=== PATIENT | female | born 1990 | race Caucasian/White ===

== ENCOUNTER 2016-06-28 11:16 | Inpatient (IN) | payer OTHER ==
[~2016-06-28] VITALS: Ht 167.6 cm; Wt 51.3 kg
[2016-06-28 12:00] VITALS: BP 114/63
[2016-06-28 12:48] LABS: BASO # 0.1 10*3/uL (0.0-0.1); BASO % 0.7 % (0.0-1.0); EOS % 0.5 % (1.0-4.0); HEMATOCRIT 46.4 % (37.0-47.0); HEMOGLOBIN 14.7 g/dl (12.0-16.0); LYMPH # 1.2 10*3/uL (1.3-4.4); LYMPH % 15.7 % (27.0-41.0); MEAN CELL VOLUME 89.4 fl (81.0-99.0); MEAN CORPUSCULAR HGB 28.3 pg (27.0-31.0); MEAN CORPUSCULAR HGB CONC 31.7 g/dl (33.0-37.0); MEAN PLATELET VOLUME 11.8 fl (9.6-12.3); MONO # 0.2 10*3/uL (0.1-1.0); MONO % 3.3 % (3.0-9.0); NEUT # 5.9 10*3/uL (2.3-7.9); NEUT % 79.5 % (47.0-73.0); PLATELET COUNT AUTOMATED 211 10*3/uL (130-400); RED BLOOD COUNT 5.19 10*6/uL (4.10-5.10); RED CELL DISTRI WIDTH 13.5 % (0-14.5); WHITE BLOOD COUNT 7.4 10*3/uL (4.8-10.8)
[2016-06-28 12:55] LABS: BILIRUBIN NEGATIVE (NEGATIVE); BLOOD NEGATIVE (NEGATIVE); CLARITY SL CLOUDY (CLEAR); COLOR YELLOW (YELLOW); GLUCOSE NEGATIVE (NEGATIVE); KETONE NEGATIVE (NEGATIVE); LEUKO ESTERASE NEGATIVE (NEGATIVE); NITRITE NEGATIVE (NEGATIVE); PH 8.5 (5.0-9.0); PROTEIN NEGATIVE (NEGATIVE); UROBILINOGEN 0.2 E.U./dl (0.2-1.0)
[2016-06-28 12:59] LABS: PROTHROMBIN TIME 10.2 SECONDS (9.0-12.4)
[2016-06-28 13:03] LABS: ALKALINE PHOSPHATASE 66 U/L (45-117); BILIRUBIN, TOTAL 0.5 mg/dl (0.2-1.0); BUN 4 mg/dl (7-24); CARBON DIOXIDE 27 mmol/L (21-32); CHLORIDE 106 mmol/L (98-107); EST GLOM FILT AFRICAN AMERICAN > 60 ml/min; GLUCOSE 104 mg/dL (65-99); POTASSIUM 4.4 mmol/L (3.5-5.1); SGOT/AST 10 IU/L (3-35); SGPT/ALT 15 U/L (12-78); SODIUM 141 mmol/L (136-145); TOTAL PROTEIN 7.7 gm/dL (6.4-8.2)
[2016-06-28 13:12] LABS: BACTERIA TRACE; EPITHELIAL CELLS 15-20; URINE REFLEX COMMENT NO (NO)
[2016-06-28 16:00] VITALS: BP 100/50
[2016-06-28 17:56] LABS: URINE AMPHETAMINES < 1000 (1000ng/ml); URINE BARBITURATES < 200 (200ng/ml); URINE COCAINE < 300 (300ng/ml)
[2016-06-28 20:00] VITALS: BP 106/53
[2016-06-29] VITALS: BP 110/58
[2016-06-29 08:00] VITALS: BP 100/47
[2016-06-29 12:00] VITALS: BP 79/41
[2016-06-29 16:00] VITALS: BP 101/51; BP 99/53
[2016-06-29 20:00] VITALS: BP 106/62
[2016-06-30] VITALS: BP 87/50
[2016-06-30 08:03] LABS: BASO # 0.1 10*3/uL (0.0-0.1); BASO % 0.8 % (0.0-1.0); EOS # 0.2 10*3/uL (0.0-0.4); EOS % 3.7 % (1.0-4.0); HEMATOCRIT 40.6 % (37.0-47.0); HEMOGLOBIN 13.3 g/dl (12.0-16.0); LYMPH # 3.1 10*3/uL (1.3-4.4); LYMPH % 48.2 % (27.0-41.0); MEAN CELL VOLUME 87.1 fl (81.0-99.0); MEAN CORPUSCULAR HGB 28.5 pg (27.0-31.0); MEAN CORPUSCULAR HGB CONC 32.8 g/dl (33.0-37.0); MEAN PLATELET VOLUME 11.6 fl (9.6-12.3); MONO # 0.5 10*3/uL (0.1-1.0); MONO % 7.7 % (3.0-9.0); NEUT # 2.5 10*3/uL (2.3-7.9); PLATELET COUNT AUTOMATED 201 10*3/uL (130-400); RED BLOOD COUNT 4.66 10*6/uL (4.10-5.10); RED CELL DISTRI WIDTH 13.4 % (0-14.5); WHITE BLOOD COUNT 6.5 10*3/uL (4.8-10.8)
[2016-06-30 08:11] VITALS: BP 105/58
[2016-06-30 08:30] LABS: EST GLOM FILT AFRICAN AMERICAN > 60 ml/min
[2016-06-30 12:09] VITALS: BP 98/50
[2016-06-30 16:00] VITALS: BP 97/53
[2016-06-30 20:00] VITALS: BP 106/59
[2016-07-01 08:00] VITALS: BP 100/48
[2016-07-01] MEDS ORDERED: ZOFRAN 4 MG ED2 TAB PO (10:03)
[2016-07-01] MEDS ORDERED: ATARAX,VISTARIL50 MG PO (10:03)
[2016-07-01] MEDS ORDERED: CARBIDOPA/LEVOD1 TA1 PO (10:03)
== END 2016-07-01 10:53 | disposition home or self-care (01) | DRG 897 ==
LOC: 5E 11:16
PROVIDERS: Hospitalist
DX: F11.23 Opioid dependence with withdrawal (principal); F13.10 Sedative, hypnotic or anxiolytic abuse, uncomplicated; Z68.1 Body mass index [BMI] 19.9 or less, adult; F12.10 Cannabis abuse, uncomplicated; Z72.0 Tobacco use